=== PATIENT | male | born 1975 | race Caucasian/White ===

== ENCOUNTER 2016-10-09 19:27 | Emergency (ER) | payer SELFPAY ==
--- NOTE | 2016-10-13 11:59 | ER ---
ADMIT: 10/09/2016 RM/LOC: ER [facility] MR#: [id number] [address] [id number] POPARMIDA JOLYNN Renae [address] [place] [address] Emergency Room Report SEX: M AGE: 41 : 1975 DATE: 10/09/2016 SUBJECTIVE: The patient is a 41-year-old male with a past medical history of CHF, atrial fibrillation, COPD, and status post AICD placement, who was previously on Xarelto and stopped it for a few weeks and restarted again this morning, came to the ER with chief complaint of left anterolateral chest pain for the last 6 hours. Pain increases with palpation over the area. The patient denies similar pain in the past, and the pain is not pleuritic. The pain is moderate in severity. The patient did not take any aspirin. There is no radiation of the pain, and the patient states the pain is like aching and muscle sore. PHYSICAL EXAMINATION: VITAL SIGNS: The patient had a blood pressure of 145/80, heart rate of 76, respiratory rate 22, and temperature at the beginning was 100.3. Note that the patient came from the outside, it was hotter and repeat temperature after a few minutes was 99.3. GENERAL: The patient was in no obvious acute distress. Alert and oriented. HEAD AND NECK: Normal. No bruit on the neck. CHEST: Clear bilaterally. HEART: Normal heart sounds without any gallops or murmurs. ABDOMEN: Soft without any palpating mass. EXTREMITIES: In the lower extremities, I do not see any unilateral edema, but the patient had bilateral chronic edema of the legs and pedal edema with mild 1 inch oozing wound on anterior each without any obvious erythema or signs of cellulitis or warmth. The patient had normal peripheral pulses. The patient had no tenderness on palpating the calf or dorsiflexion of the foot. IMAGING: EKG showed ventricular-paced rhythm with a rate of 60 without negative Sgarbossa criteria. Chest x-ray was negative for any acute changes. The patient received aspirin in the ER. The patient received 1 dose of nitroglycerin 0.4 mg sublingual, which did not change the pain. The patient received 2 mg of morphine IV, which decreased the pain substantially. The D- dimer was negative. Troponin I was also negative. Rest of the lab works were noncontributory and negative. Pain was resolved. The patient is stable to be discharged to home. Wounds were dressed and the patient was advised to follow up with the primary doctor as needed. Nehemiah Bunch MD/ feng JOB #: [id number] CC: Nehemiah Bunch MD, Attending Physician Ellie Henriquez APRN-BRIDGET, Family Physician
== END 2016-10-09 21:20 | disposition home or self-care (01) ==
LOC: ER 19:27
DX: R07.89 Other chest pain (principal); I50.9 Heart failure, unspecified; I48.91 Unspecified atrial fibrillation; Z95.810 Presence of automatic (implantable) cardiac defibrillator; Z79.82 Long term (current) use of aspirin; Z79.899 Other long term (current) drug therapy